=== PATIENT | female | born 1980 | race Two or more races ===

== ENCOUNTER → 2024-11-04 | Outpatient (CLI) | payer BC, SELFPAY ==
--- NOTE | 2024-11-04 13:00 | XR_ITS ---
Examination: Breast ultrasound, unilateral, left complete Date and time of exam: November 04, 2024 1310 hours INDICATIONS: Mammogram outside examination focal asymmetry left breast 8 mm retroareolar and 9 mm medial left breast Technique: Real-time white scale ultrasonographic imaging performed left breast including all 4 quadrants as well as nipple retroareolar and axillary region. Findings: No cystic or solid mass IMPRESSION: BI-RADS Category 1: Negative study
--- NOTE | 2024-11-04 14:15 | XR_ITS ---
Examination: Diagnostic digital mammography, unilateral, left Computer aided detection 3-D breast Tomosynthesis, unilateral Date and time of exam: November 04, 2024 1300 hours INDICATIONS: Outside ultrasound one month ago, abnormal, no report available Technique: Nonmagnified MLO, CC views of the left breast have been obtained, reconstructed from 3-D Tomosynthesis images. R2 computer aided detection program utilized for evaluation of suspicious masses and/or abnormal calcifications. 3-D Tomosynthesis images obtained. Findings: Scattered areas of fibroglandular density 6 mm focal asymmetry upper left breast on the MLO view Impression: BI-RADS category 0: Incomplete: Need additional imaging evaluation 6 mm focal asymmetry upper left breast on the MLO view, recommend follow-up spot tomographic views upper outer quadrant left breast to complete the workup
== END | disposition home or self-care (01) ==
PROVIDERS: PCP Nurse Practitioner Women's Health; Referring Provider Nurse Practitioner Women's Health; Visit Provider Nurse Practitioner Women's Health
DX: R92.8 Other abnormal and inconclusive findings on diagnostic imaging of breast (principal); N64.89 Other specified disorders of breast
CPT/HCPCS: 76641; 77061; 77065; G0279

== ENCOUNTER → 2024-12-30 | Outpatient (CLI) | payer BC, SELFPAY ==
--- NOTE | 2024-12-30 14:15 | XR_ITS ---
Examination: Diagnostic digital mammography, unilateral, left Computer aided detection 3-D breast Tomosynthesis, unilateral Date and time of exam: December 30, 2024 1428 hours INDICATIONS: Mammogram November 04, 2024 6 mm focal asymmetry upper left breast on the MLO view Technique: Nonmagnified MLO, CC views of the left breast have been obtained, reconstructed from 3-D Tomosynthesis images. R2 computer aided detection program utilized for evaluation of suspicious masses and/or abnormal calcifications. 3-D Tomosynthesis images obtained. Findings: Scattered areas of fibroglandular density 8 mm focal nodule upper outer left breast on the spot compression views IMPRESSION: BI-RADS Category 0: Incomplete: Need additional imaging evaluation Recommend ultrasound repeat left breast to assess the 8mm nodule upper outer left breast on the spot compression views
== END | disposition home or self-care (01) ==
PROVIDERS: Referring Provider Nurse Practitioner Family; Visit Provider Nurse Practitioner Family
DX: N63.21 Unspecified lump in the left breast, upper outer quadrant (principal); R92.322 Mammographic fibroglandular density, left breast
CPT/HCPCS: 77061; 77065; G0279